=== PATIENT | male | born 1950 | race Caucasian/White ===

== ENCOUNTER → 2020-10-12 | Outpatient (CLI) | payer OTHER | LOC: COL.RAD 10-11 09:15 | DX: M79.605 Pain in left leg (principal); Z98.890 Other specified postprocedural states | CPT/HCPCS: A9503 ==

== ENCOUNTER 2021-08-31 07:16 | Day surgery (SDC) | payer OTHER ==
[~2021-08-31] VITALS: Ht 177.8 cm; Wt 104.7 kg
[2021-08-31] MEDS ORDERED: MYRBETR25MG PO (07:36)
[2021-08-31] MEDS ORDERED: ROXICODONE 55 MG/TAB PO ×2 (07:36→09:47)
[2021-08-31] MEDS ORDERED: VOLTAREN GEL 1%1 TU TP (07:37)
[2021-08-31] MEDS ORDERED: FOLIC ACID 11 MG/TA1 PO (07:37)
[2021-08-31] MEDS ORDERED: EUTHYROX125 MCG PO (07:38)
[2021-08-31] MEDS ORDERED: MOTRIN 800800 MG/TAB PO (07:38)
[2021-08-31] MEDS ORDERED: ULTRAM 50MG TAB50 MG PO (07:38)
[2021-08-31] MEDS ORDERED: PRILOSEC 20MG20 MG PO (07:39)
[2021-08-31] MEDS ORDERED: ENABLEX 7.5MG7.5 MG PO (07:40)
[2021-08-31 08:00] VITALS: BP 119/59; PULSE 71; TEMP 97.9
[2021-08-31 10:20] VITALS: BP 138/75; PULSE 61; TEMP 97.5
--- NOTE | 2021-08-31 10:20 | NUR ---
Patient brought back into [facility] from PACU. Report received from PACU. Patient requesting coffee, water, and jello. requesting water and coffee. Patient states it he doesn't have incisional pain but having moderate to severe pain to his right knee. Ice applied to right knee.
[2021-08-31 10:35] VITALS: BP 132/77; PULSE 66; TEMP 97.5
--- NOTE | 2021-08-31 10:35 | NUR ---
Patient tolerating food and drink well. PRN pain medication given per MAR. Vital signs stable
[2021-08-31 10:50] VITALS: BP 136/76; PULSE 66
--- NOTE | 2021-08-31 10:50 | NUR ---
Patient up to restroom with cane and .
--- NOTE | 2021-08-31 11:00 | NUR ---
Patient able to void successfully and got dressed with assistance of . Went through discharge instructions with patient. IV d/c'd without complications. Educated patient to removed dressing as needed. Patient escorted out to patient entrance via wheelchair. Got into personal vehicle unassisted and left in the care of his , Toshia.
[2021-08-31 16:48] VITALS: BP 138/75; PULSE 61; TEMP 97.5
== END 2021-08-31 11:20 | disposition home or self-care (01) ==
LOC: SDCO 07:16
DX: R59.0 Localized enlarged lymph nodes (principal); Z87.891 Personal history of nicotine dependence
CPT/HCPCS: J0690; J1100; J2250; J2405; J2704; J3010; J7120